=== PATIENT | female | born 1990 | race Caucasian/White ===

== ENCOUNTER 2018-03-27 14:30 | Inpatient (IN) | payer MEDICAID ==
[2018-03-27] MEDS ORDERED: OXYTOCIN/SODIUM CHLORIDE 500 ML IV ONE (14:43)
[2018-03-27] MEDS ORDERED: LIDOCAINE 2% 10 ML MDV ONE (14:44)
[2018-03-27] MEDS ORDERED: MAGNESIUM HYDROXIDE 2,400 MG/30 ML UDC PO PRN (14:56)
[2018-03-27] MEDS ORDERED: ONDANSETRON 4 MG/2 ML VIAL IVP PRN (14:56)
[2018-03-27] MEDS ORDERED: HYDROCORTISONE/PRAMOXINE 10 GM PR PRN (14:56)
[2018-03-27] MEDS ORDERED: OXYTOCIN 10 UNIT/ML VIAL IM ONE (14:56)
[2018-03-27] MEDS ORDERED: HYDROCORTISONE 1% CREAM 28 GM TUBE PR PRN (14:56)
[2018-03-27] MEDS ORDERED: OXYTOCIN/SODIUM CHLORIDE 250 ML IV ONE (14:56)
[2018-03-27] MEDS ORDERED: WITCH HAZEL/GLYCERIN 1 EACH MED..PAD TOP PRN (14:56)
--- NOTE | 2018-03-27 15:11 | DELIVERY NOTE ---
Delivery Note - Labor Labor: positive: Spontaneous (preciptious) - Delivery Method Delivery Method: positive: Spontaneous vaginal delivery - Presentation Presentation: positive: Vertex, OA - occiput anterior - Nuchal Cord Nuchal Cord: positive: None - Anesthetic Anesthetic Type: - Amniotic Fluid Description Amniotic Fluid Description: positive: Clear - Episiotomy Type Episiotomy Type: positive: None - Laceration Laceration: positive: None - Delivery Outcome Delivery Outcome: positive: Livebirth - [place]: positive: Placed in direct skin contact with mother, Stimulated, [place] used [place] sex: positive: Male - Cord Cord: positive: 3 vessels - Placenta Placenta: positive: Intact, Spontaneous - Estimated Blood Loss Estimated Blood Loss (in cc): 350 - Post Delivery Events Post Delivery Events: positive: No post delivery events - Delivery Comments (Free Text/Narrative) Delivery Comments (Free Text/Narrative): Faith Lawrence is a 28 y/o @ 35 weeks by pt report w/ CONNIE 04/25/18. She received limited care at [facility] at some point in her but cannot recall the last time she was seen there. She states she has had an uncomplicated course, although she states that she was told that she had high blood pressure at some point. She admits to polysubstance use throughout , including tobacco, methamphetamine, some alcohol, and marijuana. She states that she did not think she could get . She did not receive substance abuse treatment during . She arrived complete and , having woken up from a nap & realizing she was in labor. She was delivered before a provider arrived, in OA position over intact perineum @ 1442, for a total first stage duration of 33 minutes, total 2nd stage duration of 1 minute. She did not push at all to effect . I arrived shortly after delivery when cord had been clamped & cut by RN, infant @ warmer for evaluation. Cord segment obtained for gases: venous pH 7.3 w/ BE 1.5; arterial pH 7.4 w/ BE -0.3. Cord blood obtained. Placenta delivered spont & intact with large amount of retroplacental clotting, Sah[place], @ 1444, for a total 3rd stage duration of 2 minutes. Patient very belligerent & apparently impaired, inarticulate and only semi-coherent. 10 units Pitocin IM administered in delayed fashion secondary to precipitous delivery of & placenta. vigorous; apgars 8/9, weight pending. Cord tox segment obtained. Placenta to pathology for evaluation. Vagina & perineum inspected & found to be intact. FF @ U, EBL 350mL. Will get 3rd trimester STI screening, blood type w/ typical admission labs. Will request social work evaluation secondary to polysubstance use in & need for CPS involvement. Pediatrics aware & will come to evaluate . Mother presently stable, unsure whether she will attempt to breastfeed. Records request for care records signed by patient & faxed to [facility]. Dr. Derek Chandler MD, arrived s/p delivery of & placenta, concurs w/ present plan.
--- NOTE | 2018-03-27 15:16 | HISTORY & PHYSICAL EXAMINATION ---
Admit History - Visit Reason Visit Reason: Contractions - : 1 Parity: 0 Premature: 0 Ectopic: 0 : 0 Care: positive: Other (fragmented care at [facility]; pt cannot recall last time she was seen) Complications This : positive: Other (polysubstance abuse) Smoking Status: Current every day smoker - Mother's Labs Mother's Blood Type: positive: Unknown Mother's RH: positive: Unknown GBS: positive: Other (unknown) Rubella Status: positive: Unknown Review of Systems - Constitutional Constitutional: denies: Fever, Chills - Eyes Eyes: denies: Blurred vision, Spots in vision - Cardiovascular Cariovascular: denies: Irregular heart rate, Palpitations, Chest pain, Edema - Respiratory Respiratory: denies: Cough, Wheezing, SOB at rest, SOB with exertion - Gastrointestinal Gastrointestinal: reports: Abdominal pain (contractions). denies: Abdominal distention - Genitourinary Genitourinary: denies: Dysuria, Frequency, Urgency - Musculoskeletal Musculoskeletal: denies: Muscle pain, Back pain, Muscle aches - Integumentary Integumentary: reports: Pruritis. denies: Rash, Lesions, Dryness - Neurological Neurological: denies: General weakness, Focal weakness, Headache, Memory problems - Psychiatric Psychiatric: reports: Other (admits to polysubstance use). denies: Depression, Anxiety - All Other Systems All Other Systems: reports: Other (reports need to push) Physical - Abdominal Exam Vital Signs: Temp Pulse Resp BP Pulse Ox 114 H 20 137/93 H 03/27/18 15:00 03/27/18 15:00 03/27/18 15:00 Contraction Frequency (min/apart): pushing Contraction Intensity: positive: Strong - Monitoring Heart Rate Baseline: pushing - Vaginal Exam Dilation (in cm): 10 Station: positive: - Speculum Exam Speculum Exam Performed: positive: No Findings: positive: Other (unclear time of ROM) - Other Notes Labor Progress Note/Additional Text: Faith Lawrence is a 28 y/o @ 35weeks EGA by her own report who presented complete and pushing. She delivered vaginally without apparent complication within 4 minutes of triage on the unit. Plan for Labor - Plan For Labor I expect patient to be DC'd or transferred within 96 hours.: Yes Plan for Labor: Delivered Immediate PP care & stabilization
[2018-03-27 15:39] LABS: BASOPHILS # (AUTO) 0.1 10^3/uL (0.0-0.1); BASOPHILS % (AUTO) 0.8 %; EOSINOPHILS % (AUTO) 0.3 %; HGB - HEMOGLOBIN 13.4 g/dL (12.0-16.0); LYMPHOCYTES # (AUTO) 2.2 10^3/uL (1.5-3.5); LYMPHOCYTES % (AUTO) 14.7 %; MEAN CORPUSCULAR HEMOGLOBIN 30.8 pg (27.0-31.0); MEAN CORPUSCULAR HGB CONC 34.6 g/dL (32.0-36.0); MEAN CORPUSCULAR VOLUME 89.1 fL (81.0-99.0); MEAN PLATELET VOLUME 10.9 fL (7.9-10.8); MONOCYTES # (AUTO) 1.2 10^3/uL (0.0-1.0); MONOCYTES % (AUTO) 7.8 %; NEUTROPHILS # (AUTO) 11.6 10^3/uL (1.5-6.6); NEUTROPHILS % (AUTO) 76.4 %; PLT - PLATELET COUNT 169 10^3/uL (130-450); RED BLOOD COUNT 4.34 10^6/uL (4.20-5.40); RED CELL DISTRIBUTION WIDTH 12.4 % (12.0-15.0); WHITE BLOOD COUNT 15.1 x10^3/uL (4.8-10.8)
[2018-03-27 15:40] LABS: ALBUMIN 3.3 g/dL (3.2-5.5); ALBUMIN/GLOBULIN RATIO 0.7 (1.0-2.2); BILIRUBIN,TOTAL 0.7 mg/dL (0.2-1.0); CREATININE 0.9 mg/dL (0.4-1.0); TOTAL PROTEIN 7.8 g/dL (6.7-8.2)
[2018-03-27] MEDS ORDERED: LIDOCAINE 2% URO-JET 5 ML SYRINGE UR ONE (15:43)
[2018-03-27] MEDS: IBUPROFEN 800 MG TABLET PO SCH ×2 (15:47→20:45)
[2018-03-27] MEDS: ACETAMINOPHEN 500 MG TABLET PO SCH (15:47)
[2018-03-27 16:40] LABS: MUDS CUTOFF CONCENTRATIONS CUTOFF CONC BELOW:
[2018-03-27 16:55] LABS: AMPHETAMINE SCREEN,URINE POSITIVE (NEGATIVE); BENZODIAZEPINES SCREEN, URINE NEGATIVE (NEGATIVE); COCAINE SCREEN URINE NEGATIVE (NEGATIVE); METHADONE SCREEN, URINE NEGATIVE (NEGATIVE); METHAMPHETAMINES SCREEN, URINE POSITIVE (NEGATIVE); OPIATE SCREEN, URINE POSITIVE (NEGATIVE); OXYCODONE SCREEN, URINE NEGATIVE (NEGATIVE); PROPOXYPHENE SCREEN, URINE NEGATIVE (NEGATIVE); TRICYCLIC ANTIDEPRESSANT,URINE NEGATIVE (NEGATIVE)
[2018-03-27] MEDS: LACTATED RINGERS 1,000 ML IV SCH (17:10)
[2018-03-27] MEDS: NICOTINE 14 MG PATCH TOP SCH (19:47)
[2018-03-27] MEDS: DOCUSATE SODIUM 100 MG CAPSULE PO SCH (20:46)
[2018-03-28] MEDS: ACETAMINOPHEN 500 MG TABLET PO SCH ×3 (02:26→17:36)
[2018-03-28] MEDS: IBUPROFEN 800 MG TABLET PO SCH ×4 (07:44→20:47)
[2018-03-28] MEDS: LACTATED RINGERS 1,000 ML IV SCH (07:44)
--- NOTE | 2018-03-28 08:56 | PROVIDER PROGRESS NOTE ---
Subjective - Prog Note Date Prog Note Date: 03/28/18 Prog Note Time: 08:53 - Subjective Pt reports feeling: Improved (Pain is 3/10. notes good pain control. Pt has been out with out supervision.) Objective - Vital Signs/Intake & Output Reviewed Vital Signs: Yes Vital Signs: Vital Signs x48h Temp Pulse Resp BP Pulse Ox 03/28/18 08:00 36.8 C 73 18 127/72 100 03/28/18 04:14 36.9 C 77 22 120/63 98 Intake & Output: Intake & Output 03/25/18 03/26/18 03/27/18 03/28/18 23:59 23:59 23:59 23:59 Output Total 100 350 Balance -100 -350 - Objective General Appearance: positive: No acute distress, Alert (speach not slured) Respiratory: positive: Chest non-tender, No respiratory distress, Breath sounds nml Cardiovascular: positive: Regular rate & rhythm, No murmur, No gallop Abdomen: positive: Non-tender, Nml bowel sounds, Mass (u) Back: negative: CVA tenderness (R), CVA tenderness (L) Extremities: negative: Calf tenderness, Cat's sign/cords Neurologic/Psychiatric: positive: Oriented x3 - Lab Results Fish Bones: 03/27/18 15:20 03/27/18 15:20 Other Labs: Lab Results x24hrs 03/27/18 03/27/18 03/27/18 Range/Units 16:30 15:20 15:20 WBC (4.8-10.8) x10^3/uL RBC (4.20-5.40) 10^6/uL Hgb (12.0-16.0) g/dL Hct (37.0-47.0) % MCV (81.0-99.0) fL MCH (27.0-31.0) pg MCHC (32.0-36.0) g/dL RDW (12.0-15.0) % Plt Count (130-450) 10^3/uL MPV (7.9-10.8) fL Neut # (Auto) (1.5-6.6) 10^3/uL Lymph # (Auto) (1.5-3.5) 10^3/uL [place] # (Auto) (0.0-1.0) 10^3/uL Eos # (Auto) (0.0-0.7) 10^3/uL Baso # (Auto) (0.0-0.1) 10^3/uL Absolute Nucleated RBC x10^3/uL Nucleated RBC % /100WBC Sodium (135-145) mmol/L Potassium (3.5-5.0) mmol/L Chloride (101-111) mmol/L Carbon Dioxide (21-32) mmol/L Anion Gap (6-13) BUN (6-20) mg/dL Creatinine (0.4-1.0) mg/dL Estimated GFR (MDRD) (>89) Glucose (70-100) mg/dL Calcium (8.5-10.3) mg/dL Total Bilirubin (0.2-1.0) mg/dL AST (10-42) IU/L ALT (10-60) IU/L Alkaline Phosphatase (42-121) IU/L Total Protein (6.7-8.2) g/dL Albumin (3.2-5.5) g/dL Globulin (2.1-4.2) g/dL Albumin/Globulin Ratio (1.0-2.2) Urine Opiates Screen POSITIVE H (NEGATIVE) Ur Oxycodone Screen NEGATIVE (NEGATIVE) Urine Methadone Screen NEGATIVE (NEGATIVE) Ur Propoxyphene Screen NEGATIVE (NEGATIVE) Ur Barbiturates Screen NEGATIVE (NEGATIVE) Ur Tricyclics Screen NEGATIVE (NEGATIVE) Ur Phencyclidine Scrn NEGATIVE (NEGATIVE) Ur Amphetamine Screen POSITIVE H (NEGATIVE) U Methamphetamines Scrn POSITIVE H (NEGATIVE) U Benzodiazepines Scrn NEGATIVE (NEGATIVE) Urine Cocaine Screen NEGATIVE (NEGATIVE) U Cannabinoids Screen POSITIVE H (NEGATIVE) Ethyl Alcohol < 5.0 mg/dL Blood Type O POSITIVE Antibody Screen NEGATIVE 03/27/18 03/27/18 Range/Units 15:20 15:20 WBC 15.1 H (4.8-10.8) x10^3/uL RBC 4.34 (4.20-5.40) 10^6/uL Hgb 13.4 (12.0-16.0) g/dL Hct 38.7 (37.0-47.0) % MCV 89.1 (81.0-99.0) fL MCH 30.8 (27.0-31.0) pg MCHC 34.6 (32.0-36.0) g/dL RDW 12.4 (12.0-15.0) % Plt Count 169 (130-450) 10^3/uL MPV 10.9 H (7.9-10.8) fL Neut # (Auto) 11.6 H (1.5-6.6) 10^3/uL Lymph # (Auto) 2.2 (1.5-3.5) 10^3/uL [place] # (Auto) 1.2 H (0.0-1.0) 10^3/uL Eos # (Auto) 0.0 (0.0-0.7) 10^3/uL Baso # (Auto) 0.1 (0.0-0.1) 10^3/uL Absolute Nucleated RBC 0.01 x10^3/uL Nucleated RBC % 0.1 /100WBC Sodium 134 L (135-145) mmol/L Potassium 3.1 L (3.5-5.0) mmol/L Chloride 96 L (101-111) mmol/L Carbon Dioxide 24 (21-32) mmol/L Anion Gap 14.0 H (6-13) BUN 13 (6-20) mg/dL Creatinine 0.9 (0.4-1.0) mg/dL Estimated GFR (MDRD) 74 L (>89) Glucose 129 H (70-100) mg/dL Calcium 9.0 (8.5-10.3) mg/dL Total Bilirubin 0.7 (0.2-1.0) mg/dL AST 54 H (10-42) IU/L ALT 61 H (10-60) IU/L Alkaline Phosphatase 206 H (42-121) IU/L Total Protein 7.8 (6.7-8.2) g/dL Albumin 3.3 (3.2-5.5) g/dL Globulin 4.5 H (2.1-4.2) g/dL Albumin/Globulin Ratio 0.7 L (1.0-2.2) Urine Opiates Screen (NEGATIVE) Ur Oxycodone Screen (NEGATIVE) Urine Methadone Screen (NEGATIVE) Ur Propoxyphene Screen (NEGATIVE) Ur Barbiturates Screen (NEGATIVE) Ur Tricyclics Screen (NEGATIVE) Ur Phencyclidine Scrn (NEGATIVE) Ur Amphetamine Screen (NEGATIVE) U Methamphetamines Scrn (NEGATIVE) U Benzodiazepines Scrn (NEGATIVE) Urine Cocaine Screen (NEGATIVE) U Cannabinoids Screen (NEGATIVE) Ethyl Alcohol mg/dL Blood Type Antibody Screen Assessment/Plan - Problem List (1) (normal spontaneous vaginal delivery) Impression: Pt is recovering well pain is minimal. (2) Polysubstance abuse Impression: Pt aware of her U tox. baby is having trouble with temp control secondary to early delivery. Pt has been out unsupervised counseled not to. offered nicotine patch. (3) Hypokalemia Impression: repeat CMP. is still low start k repalcement
[2018-03-28] MEDS ORDERED: NICOTINE 14 MG PATCH TOP SCH (09:00)
[2018-03-28 09:40] LABS: ALBUMIN 2.6 g/dL (3.2-5.5); ALBUMIN/GLOBULIN RATIO 0.8 (1.0-2.2); BILIRUBIN,TOTAL 0.5 mg/dL (0.2-1.0); CALCIUM 8.6 mg/dL (8.5-10.3); CREATININE 0.9 mg/dL (0.4-1.0)
[2018-03-28] MEDS: DOCUSATE SODIUM 100 MG CAPSULE PO SCH ×2 (10:15→20:46)
[2018-03-28] MEDS: NICOTINE 14 MG PATCH TOP SCH (10:17)
[2018-03-28] MEDS: POTASSIUM CHLORIDE 10 MEQ CAPSULE PO SCH (10:23)
[2018-03-28] MEDS ORDERED: OXYTOCIN 10 UNIT/ML VIAL ONE (19:37)
[2018-03-29] MEDS: LACTATED RINGERS 1,000 ML IV SCH ×2 (08:01→08:04)
[2018-03-29] MEDS: ACETAMINOPHEN 500 MG TABLET PO SCH ×3 (08:02→17:27)
[2018-03-29] MEDS: IBUPROFEN 800 MG TABLET PO SCH ×3 (08:03→17:27)
[2018-03-29 10:31] LABS: HEPATITIS B SURFACE ANTIGEN NON-REACTIVE (NON-REACTIVE); HEPATITIS C ANTIBODY REACTIVE (NON-REACTIVE)
[2018-03-29] MEDS: DOCUSATE SODIUM 100 MG CAPSULE PO SCH (10:45)
[2018-03-29] MEDS: NICOTINE 14 MG PATCH TOP SCH (10:45)
--- NOTE | 2018-03-29 12:36 | PROVIDER PROGRESS NOTE ---
Subjective - Prog Note Date Prog Note Date: 03/29/18 Prog Note Time: 12:34 - Subjective Pt reports feeling: Improved (Pt is doing well. not needing Pain medication. Pain 08/14. Discussed Positive Hep C. Pt admits to IV durg use 1.5 years ago. not currently.) Objective - Vital Signs/Intake & Output Reviewed Vital Signs: Yes Vital Signs: Vital Signs x48h Temp Pulse Resp BP Pulse Ox 03/29/18 11:34 36.7 C 68 18 124/64 100 03/29/18 07:58 36.6 C 51 L 18 106/57 L 99 Intake & Output: Intake & Output 03/26/18 03/27/18 03/28/18 03/29/18 23:59 23:59 23:59 23:59 Output Total 100 350 Balance -100 -350 - Objective General Appearance: positive: No acute distress, Alert Abdomen: positive: Non-tender, No organomegaly, Nml bowel sounds, No distention, Mass (u-2) Back: negative: CVA tenderness (R), CVA tenderness (L) Skin: positive: Color nml, No rash, Warm, Dry Extremities: negative: Calf tenderness, Cat's sign/cords Neurologic/Psychiatric: positive: Oriented x3 - Lab Results Fish Bones: 03/27/18 15:20 03/28/18 09:15 Other Labs: Lab Results x24hrs 03/27/18 03/27/18 Range/Units 15:20 15:20 Hep Bs Antigen NON-REACTIVE (NON-REACTIVE) Hepatitis C Antibody REACTIVE A (NON-REACTIVE) Hep C Ab Signal/Cutoff 17.00 H (<1.00) Assessment/Plan - Problem List (1) (normal spontaneous vaginal delivery) Impression: recovering well. (2) Polysubstance abuse Impression: Pt admits to IV durg use in the past. not currently. (3) Hypokalemia Impression: Resolved. (4) Hep C w/o coma, chronic Impression: Pt just diagnosed with Hep C. Hx of Iv drug use. Hep C viral load, CMP, GI consult as out Pt.
--- NOTE | 2018-03-29 12:42 | Discharge Plan ---
Discharge Plan Disposition: 01 Home, Self Care Condition: Good Diet: Regular Activity Restrictions: Pelvic rest 6 weeks Shower Restrictions: No Driving Restrictions: No No Smoking: If you smoke, Please STOP! Call for help.
[2018-03-29] MEDS: POTASSIUM CHLORIDE 10 MEQ CAPSULE PO SCH (12:48)
[2018-03-29 13:48] LABS: HIV AG/AB 4TH GEN NON-REACTIVE (NON-REACTIVE)
[2018-03-29 14:06] LABS: ALBUMIN 2.7 g/dL (3.2-5.5); ALBUMIN/GLOBULIN RATIO 0.7 (1.0-2.2); BILIRUBIN,TOTAL 0.3 mg/dL (0.2-1.0); CALCIUM 8.7 mg/dL (8.5-10.3); CREATININE 0.7 mg/dL (0.4-1.0); TOTAL PROTEIN 6.4 g/dL (6.7-8.2)
[2018-03-29 17:27] VITALS: BP 115/94
--- NOTE | 2018-03-29 17:30 | Labor Flowsheet ---
Labor Flowsheet Datetime Report Generated by CPN: 03/29/2018 17:30 Datetime: 03/29/2018 16:47 VITAL SIGNS NBP Sys/Monika/Mean (mmHg): 115 : 94 : 99 Pulse: 65 Datetime: 03/27/2018 18:33 VAGINAL EXAM Membranes Ruptured Date/Time: 03/27/2018 14:31 Membranes Rupture Method: Spontaneous Amniotic Fluid Color: Clear Amniotic Fluid Amount: Moderate Amniotic Fluid Odor: Normal Datetime: 03/27/2018 15:30 SpO2 (%): 100
[2018-03-30 12:21] LABS: HSV 1 IGG TYPE SPECIFIC AB <0.90 index; HSV 2 IGG TYPE SPECIFIC AB 4.37 index
--- NOTE | 2018-03-30 18:25 | DISCHARGE SUMMARY ---
Physician: Derek Chandler MD DATE OF ADMISSION: 03/27/2018 DATE OF DISCHARGE: 03/29/2018 ADMITTING DIAGNOSIS: Precipitous delivery at 35 weeks. DISCHARGE DIAGNOSES 1. A 28-year-old G1, P0. 2. 35 weeks by 22-week ultrasound. 3. Precipitous delivery. 4. Suspect abruption. 5. Polypharmacy. 6. Scant obstetrical care. 7. Hepatitis C. PROCEDURES: Assisted vaginal delivery. PRESENTING HISTORY: Patient is a 28-year-old. She is a G1, P0 female. She presented to Labor and Delivery with no obstetrical care in second stage of labor. Little or no obstetrical history was available, and she delivered before either the box office agent or the physician could arrive and was delivered by nursing. LABORATORIES Patient's CBC on admission showed a white count of 15.1, hemoglobin was 13.4, hematocrit was 38.7, platelets were 169. Chemistries - She initially showed hypokalemia and hyponatremia. Sodium was 134, potassium was 3.1, glucose was 129. AST was elevated at 54, ALT at 61, alkaline phosphatase at 206. , her hyponatremia and hypokalemia had both resolved. Her AST had improved to 47, ALT was normalized to 58. Her third day , her hyponatremia had fallen to 134. Her AST and ALT had both normalized. Toxicology - Patient had a urine tox screen, which is positive for opiates, amphetamine, methamphetamine, as well as cannabinoids. Her blood alcohol on admission was less than 5. Serology - Patient had hepatitis C, which was reactive. An IgG type 2 was elevated at 4.37. Rubella immune. HIV was negative. Hepatitis B was also negative. RPR was drawn and is currently not available. HOSPITAL COURSE: Patient was admitted at second stage of labor. The physician was summoned, as was the box office agent. The patient delivered by the nurse prior to the arrival of either the box office agent or the physician. Placenta soon followed, and there was thought to be a clot on the back of it. Her bleeding resolved. The infant did well initially. Her course was unremarkable. Upon further questioning, she did admit to having used IV drugs a year and a half prior. She had been seen once or twice at [facility] and had an ultrasound done at 20 weeks, which assisted in the dating of the infant. She responded well, required minimal pain medication. CPS was engaged as soon as delivery occurred. She was discharged to home on 03/29/2018 with plans to go to [place] where infant had been transferred to. We discussed the issues of hepatitis C and its contraction. Also felt that it is imperative that she be seen by GI consult. This will be obtained on a return visit. We have also discussed the issues of and hepatitis C. She was sent home on Tylenol for pain control because of the narcotic abuse in the past. She was also instructed to use ice packs and breast binders for her breasts as, at this point, we do not believe that would be recommended. TD: 03/30/2018 13:08 ANNETTE
[2018-03-31 15:26] LABS: HCV RNA QNT <1.18 NOT DETECTED Log IU/mL (NOT DETECTED); HCV RNA QUANT RT PCR <15 NOT DETECTED IU/mL (NOT DETECTED)
[2018-03-31 15:26] LABS: HCV RNA QNT <1.18 NOT DETECTED Log IU/mL (NOT DETECTED); HCV RNA QUANT RT PCR <15 NOT DETECTED IU/mL (NOT DETECTED)
[2018-03-31 23:28] LABS: HEPATITIS C VIRAL RNA GENOTYPE NOT DETECTED
== END 2018-03-29 17:15 | disposition home or self-care (01) | DRG 805 ==
LOC: WFO 14:30 → FBP 14:31
PROVIDERS: ADMIT Registered Nurse; ATTEND Obstetrics & Gynecology
PROC: 10E0XZZ Delivery of Products of Conception, External Approach (ICD-10-PCS; principal; 2018-03-27)
DX: O60.14X0 Preterm labor third trimester with preterm delivery third trimester, not applicable or unspecified (principal); O45.92 Premature separation of placenta, unspecified, second trimester; Z37.0 Single live birth; O98.42 Viral hepatitis complicating childbirth; O99.324 Drug use complicating childbirth; E87.1 Hypo-osmolality and hyponatremia; B19.20 Unspecified viral hepatitis C without hepatic coma; F11.90 Opioid use, unspecified, uncomplicated; F15.90 Other stimulant use, unspecified, uncomplicated; O99.313 Alcohol use complicating pregnancy, third trimester; F12.90 Cannabis use, unspecified, uncomplicated; O99.334 Smoking (tobacco) complicating childbirth; O62.3 Precipitate labor; O99.284 Endocrine, nutritional and metabolic diseases complicating childbirth; E87.6 Hypokalemia; O43.893 Other placental disorders, third trimester; Z3A.35 35 weeks gestation of pregnancy
CPT/HCPCS: 36415; 80053; 80306; 80307; 80320; 81599; 82803; 85025; 86695; 86696; 86762; 86780; 86803; 86850; 86880; 86900; 86901; 87340; 87389; 87491; 87522; 87591; 87902

== ENCOUNTER 2023-08-26 12:16 | Emergency (ER) | payer MEDICAID ==
[2023-08-26 12:23] VITALS: O2SAT 100
--- NOTE | 2023-08-26 12:46 | ED Physician Documentation ---
PD HPI HEENT - Stated complaint Stated Complaint: RT FACE SWELLING - Chief complaint Chief Complaint: Heent - Additional information Additional information: 33-year-old female with history of polysubstance abuse and poor dentition presents to the emergency department for 1 day of right facial swelling. Patient said that she started noticing some mild swelling to her right upper face yesterday she said that she knows she has a broken molar in her right upper tooth she said that she tried to ignore it and was unable to get in urgently with a dentist today the swelling has increased significantly. She has no jaw trismus no mastoid tenderness no fevers or chills and her pain is well- controlled with benzocaine. Patient says that she is mainly here for oral antibiotics that she knows she will need to have prior to seeing a dentist for tooth extraction. PD PAST MEDICAL HISTORY - Present Medications Home Medications: Ambulatory Orders Medication Instructions Recorded Confirmed Amox/Clav 875/125 [Augmentin 1 tablet PO Q12H 10 Days #20 tablet 08/26/23 875/125 Tab] - Allergies Allergies/Adverse Reactions: Allergies Allergy/AdvReac Type Severity Reaction Status Date / Time Sulfa (Sulfonamide Allergy Unknown Unknown Verified 08/26/23 12:22 Antibiotics) - Social History Smoking Status: Current every day smoker PD ED PE NORMAL - Vitals Vital signs reviewed: Yes - General General: Alert and oriented X 3, No acute distress, Well developed/nourished - HEENT HEENT: PERRL, EOMI, Moist mucous membranes, Other (Very poor overall dentition with multiple broken teeth and dental caries. Right face significant swelling up to her eye. She is able to open and close her mouth without any difficulty no tenderness with palpation to the mastoid or dry region no jaw trismus.) - Neck Neck: Supple, no meningeal sign, No bony TTP - Respiratory Respiratory: No respiratory distress, Clear bilaterally - Derm Derm: Normal color, Warm and dry, No rash Results - Vitals Vitals: Vital Signs - 24 hr 08/26/23 08/26/23 12:17 12:52 Temperature 36.7 C 36.7 C Heart Rate 98 89 Respiratory 17 16 Rate Blood Pressure 153/103 H 149/91 H O2 Saturation 100 100 Oxygen O2 Source Room air PD Medical Decision Making - ED course ED course: Patient presents for dental pain due to suspected dental abscess. Patient not immunosuppressed, afebrile and well appearing with patent airway, have low suspicfion for deep space infection or any concern for airway compromise. Based on history, physical, and work up. No evidence of bleeding socket. No evidence of RPA, PROCESS IMPROVEMENT ENGINEER, Ludwigs angina, periapical abscess. Offered patient dental nerve block for pain which patient declined. Instructed patient to continue to treat pain with ibuprofen/acetaminophen until they see a dentist. Started patient on Augmentin here in the emergency department and a prescription sent to her preferred pharmacy Patient discharged home and will follow up with dentist. Discussed return precautions for odontogenic infections and other dental pain emergencies. Departure - Departure Disposition: Home, Self Care Clinical Impression: Dental abscess, Dental caries Instructions: ED Abscess Dental Prescriptions: Amox/Clav 875/125 [Augmentin 875/125 Tab] 1 tablet PO Q12H 10 Days #20 tablet Comments: Thank you for trusting us with your care, we have evaluated you for right facial swelling. You appear to have a dental abscess we have started you on an antibiotic called Augmentin here in the emergency department. I have sent this prescription to [facility] to make sure that you pick this up today and you are taking this every 12 hours for total of 10 days. Please follow-up with a dentist and make an appointment as soon as possible to get those broken teeth pulled as this will continue to happen if you do not get this taken care of. Please have a very low threshold to come back to the emergency department if it gets any worse in any way shape or form. Wishing you a speedy recovery. Forms: PCP List Discharge Date/Time: 08/26/23 12:52
[2023-08-26] MEDS: AMOX/CLAV 875 MG/125 MG TABLET PO STA (12:48)
[2023-08-26 12:53] VITALS: BP 149/91
== END 2023-08-26 12:52 | disposition home or self-care (01) ==
LOC: ED 12:16
DX: K04.7 Periapical abscess without sinus (principal); K02.9 Dental caries, unspecified; F17.200 Nicotine dependence, unspecified, uncomplicated
CPT/HCPCS: 99282; 99283; A9270